=== PATIENT | male | born 1985 | race Caucasian/White ===

== ENCOUNTER 2020-12-05 14:40 | Inpatient (IN) ==
[2020-12-05 15:38] LABS: Basophils # (auto) 0.02 K/uL (0-0.2); Basophils % (auto) 0.2 %; Hematocrit (blood only) 47.4 % (42-52); Hemoglobin 17.4 g/dL (14.0-18.0); Immature Granulocytes # (auto) 0.02 K/uL (0.00-0.02); Immature Granulocytes % (auto) 0.2 %; Lymphocytes # (auto) 1.56 K/uL (1.2-3.4); Lymphocytes % (auto) 12.7 %; Mean Corpuscular Hemoglobin 32.6 pg (25-34); Mean Corpuscular Hgb Conc 36.7 g/dL (32-36); Mean Corpuscular Volume 88.9 fL (80-100); Mean Platelet Volume 11.2 fL (7.4-10.4); Monocytes # (auto) 0.49 K/uL (0.11-0.59); Neutrophils # (auto) 10.18 K/uL (1.4-6.5); Neutrophils % (auto) 82.9 %; Platelet Count 204 K/uL (130-400); RDW Standard Deviation 48.9 fL (36.4-46.3); Red Blood Count 5.33 M/uL (4.7-6.1); White Blood Count 12.27 K/uL (4.8-10.8)
[2020-12-05 15:52] LABS: Appearance Urine Clear (Clear); Bacteria Urine Automated Negative (Negative); Bilirubin Urine Negative (Negative); Blood Urine Trace (Negative); Cast Urine Automated 0 /lpf (0-5); Color Urine Yellow; Epithelial Cell Urine Auto 0-5 /lpf (0-5); Glucose Urine UA Negative (Negative); Ketones Urine 1+ (Negative); Leukocyte Esterase Urine Negative (Negative); Nitrite Urine Negative (Negative); Protein Urine Negative (Negative); RBC Urine Automated 0-4 /hpf (0-4); Urobilinogen Urine Negative (Negative); WBC Urine Automated 0 /hpf (0-5); pH Urine 5.5 (4.5-7.5)
[2020-12-05 16:05] LABS: Albumin Level 4.4 gm/dl (3.4-5.0); BUN Creatinine Ratio 8.3 (10-20); Calcium 9.1 mg/dl (8.5-10.1); Creatinine Clr Calc Pharmacy 91.7 ml/min; Est GFR (African American) 93.7; Est GFR (Non-African American) 80.9; Potassium 4.2 mmol/L (3.5-5.1)
[2020-12-05 16:08] LABS: Amphetamines+Metham, Urine Neg (Neg); Barbiturates, Urine Neg (Neg); Benzodiazepine, Urine Neg (Neg); Cocaine, Urine Neg (Neg); MDMA (Ecstacy), Urine Neg (Neg); Methadone, Urine Neg (Neg); Opiate, Urine Neg (Neg); Phencyclidine, Urine Neg (Neg)
[2020-12-05 16:15] LABS: Albumin Globulin Ratio 1.1 (0.9-2); Bilirubin,Total 0.6 mg/dl (0.2-1); Thyroid Stimulating Hormone 1.61 uIu/ml (0.300-4.500); Total Protein 8.4 gm/dl (6.4-8.2)
[2020-12-05 16:16] LABS: Acetaminophen < 2 ug/ml (10-30); Salicylate 2.8 mg/dl (2.8-20)
--- NOTE | 2020-12-05 16:26 | Emergency Department Note ---
Impression & Plan Suicidal ideation ED Provider Note NAME: CHIVO CESPEDES AGE: 35 SEX: M : 1985 ARRIVES VIA: Walk-In INFORMANT: [Patient] ED PROVIDER(S): [Sarbjit Choi MD] CHIEF COMPLAINT: Mental health evaluation HISTORY OF PRESENT ILLNESS: The patient is a 35-year-old male who has a history of depression. He has not been on medications for years. He has been using marijuana to self treat his depression. Things have worsened as of late and recently, he found out his is talking to another man. He found this out yesterday. He says that his marriage is now falling apart. Yesterday, he took a drive in his vehicle with his pistol with thoughts to commit suicide. He called a friend of his who is a police chief. His friend was able to talk him down and he has actually given the gun to the friend. The patient states that he has a kids that he needs to think about. Patient has agreed to seek help. He went to his doctor's office today and he was referred here for an evaluation. The patient is voluntary and willing to come into the hospital for psychiatric care. There has been no recent cough, cold or congestion. The patient has been otherwise healthy. He admits to the marijuana use but denies any alcohol or other drug use. REVIEW OF SYSTEMS: See HPI for pertinent positives and negatives. A total of ten systems were r eviewed and were otherwise negative. PMHx/PSHx: See Below SOCIAL HISTORY: See Below. PHYSICAL EXAM: GENERAL: Patient is in no acute distress. HEENT: No acute trauma, normocephalic atraumatic, mucous membranes moist, no nasal congestion, no scleral icterus. NECK: No stridor, no adenopathy, no meningismus, trachea is midline. LUNGS: Clear to auscultation bilaterally, no wheeze, no rhonchi, breath sounds equal. HEART: Without murmurs gallops or rubs, regular rate and rhythm. ABDOMEN: Soft, nontender, bowel sounds positive, no hernias, no peritonitis. EXTREMITIES: No cyanosis or edema, full range of motion of all the joints without pain or difficulty, no signs for acute trauma. NEUROLOGIC: Oriented x 3, no acute motor or sensory deficits, no focal weakness. SKIN: No rash, no jaundice, no diaphoresis. Psychiatric: Cooperative, tearful when discussing his suicidal thoughts and his children. Voluntary. DIFFERENTIAL DIAGNOSIS: Mood disorder, infection, hypoglycemia, electrolyte abnormalities, depression, suicidal ideation, cardiac sources, intracerebral event, toxicologic etiology, trauma, neurologic event, as well as other pathologies. EMERGENCY DEPARTMENT COURSE/PROCEDURES: MEDICAL DECISION MAKING: There is a mild leukocytosis, this could be consistent with infection or just the stress of his presentation. There is a normal hemoglobin and platelet count. There is no significant electrolyte abnormality or kidney failure. There is no worrisome liver enzyme elevation. Patient appears to be in a euthyroid state. Urinalysis does not show infection. Aspirin and Tylenol and alcohol levels were basically undetectable. Urine tox was positive for marijuana. Covid testing was negative. The patient presents with suicidal ideation. He had planned to shoot himself with his pistol. He presents voluntarily and would like to be hospitalized for his depression and thoughts. The patient was felt medically clear. He was seen by psychiatry case management. A referral was made to our hospital's psychiatric floor. The patient has been accepted at our facility. He is being transferred to [facility]. He is being admitted voluntarily. Past Med/Surg History Medical History Depression Social History Smoking Status: Current every day smoker Preferred Language: Khmer Communication Ability: Effective Senior Statistician Required: No Beliefs That Will Affect Care: None Feels Safe at Home: Yes Assistive Devices: Glasses Allergies Allergies Allergy/AdvReac Type Severity Reaction Status Date / Time No Known Allergies Allergy Verified 12/05/20 21:20 Results & Data (ED) Vital Signs Vital Signs - 24 hr 12/05/20 15:02 12/05/20 17:49 Temperature 37.4 C Temperature Source Temporal Artery Scan Pulse Rate 73 Pulse Rate [Right Radial] 51 L Pulse Rhythm [Right Radial] Regular Pulse Strength [Right Radial] Normal Respiratory Rate 20 17 Respiratory Effort / Characteristics Non-Labored Non-Labored Spontaneous Respiratory Depth Normal Normal Respiratory Pattern Regular Regular Blood Pressure 146/98 H Blood Pressure [Right Arm] 121/56 L Blood Pressure Mean 114 Blood Pressure Mean [Right Arm] 77 Blood Pressure Position Sitting Blood Pressure Position [Right Arm] Sitting Pulse Oximetry 96 99 Oxygen Delivery Method Room Air Room Air Sepsis Recent Fever Within 48 Hours No Sepsis New/Unexplained Change in Mental Status No Sepsis Action Taken by Nursing No Action Required Home Medications Current Medication List: was personally reviewed by me Laboratory Data Attestation: I reviewed the patient's lab results. Result diagrams: 12/05/20 15:12/05/20 15: Lab Results 12/05/20 12/05/20 12/05/20 Range/Units 15: 15: 15: WBC 12.27 H (4.8-10.8) K/uL RBC 5.33 (4.7-6.1) M/uL Hgb 17.4 (14.0-18.0) g/dL Hct 47.4 (42-52) % MCV 88.9 (80-100) fL MCH 32.6 (25-34) pg MCHC 36.7 H (32-36) g/dL RDW Std Deviation 48.9 H (36.4-46.3) fL RDW Coeff of Maty 15.0 H (11.5-14.5) % Plt Count 204 (130-400) K/uL MPV 11.2 H (7.4-10.4) fL Immature Gran % (Auto) 0.2 % Neut % (Auto) 82.9 % Lymph % (Auto) 12.7 % Hardee % (Auto) 4.0 % Eos % (Auto) 0.0 % Baso % (Auto) 0.2 % Neut # (Auto) 10.18 H (1.4-6.5) K/uL Lymph # (Auto) 1.56 (1.2-3.4) K/uL Hardee # (Auto) 0.49 (0.11-0.59) K/uL Eos # (Auto) 0.00 (0-0.5) K/uL Baso # (Auto) 0.02 (0-0.2) K/uL Immature Gran # (Auto) 0.02 (0.00-0.02) K/uL Sodium (136-145) mmol/L Potassium (3.5-5.1) mmol/L Chloride (98-107) mmol/L Carbon Dioxide (21-32) mmol/L Anion Gap (3-11) BUN (7-18) mg/dl Creatinine (0.6-1.4) mg/dl Est Cr Clr Drug Dosing ml/min Est GFR ( Amer) Est GFR (Non-Af Amer) BUN/Creatinine Ratio (10-20) Glucose (70-99) mg/dl Calcium (8.5-10.1) mg/dl Total Bilirubin (0.2-1) mg/dl AST (15-37) U/L ALT (12-78) U/L Alkaline Phosphatase (45-117) U/L Total Protein (6.4-8.2) gm/dl Albumin (3.4-5.0) gm/dl Globulin (2.5-4.0) gm/dl Albumin/Globulin Ratio (0.9-2) TSH (0.300-4.500) uIu/ml Urine Color Yellow Urine Appearance Clear (Clear) Urine pH 5.5 (4.5-7.5) Ur Specific Ermine 1.010 (1.000-1.030) Urine Protein Negative (Negative) Urine Glucose (UA) Negative (Negative) Urine Ketones 1+ H (Negative) Urine Blood Trace H (Negative) Urine Nitrite Negative (Negative) Urine Bilirubin Negative (Negative) Urine Urobilinogen Negative (Negative) Ur Leukocyte Esterase Negative (Negative) Urine WBC (Auto) 0 (0-5) /hpf Urine RBC (Auto) 0-4 (0-4) /hpf U Hyaline Cast (Auto) 0 (0-5) /lpf U Epithel Cells (Auto) 0-5 (0-5) /lpf Urine Bacteria (Auto) Negative (Negative) Salicylates (2.8-20) mg/dl Urine Opiates Screen Neg (Neg) Ur Methadone, Qual Neg (Neg) Acetaminophen (10-30) ug/ml Urine Barbiturates Neg (Neg) Ur Phencyclidine (PCP) Neg (Neg) U Amphetamin/Meth Scrn Neg (Neg) MDMA (Ecstasy) Screen Neg (Neg) U Benzodiazepines Scrn Neg (Neg) Ur Cocaine Metabolite Neg (Neg) U Marijuana (THC) Screen Pos H (Neg) Ethyl Alcohol mg/dL (0-3) mg/dl COVID-19 Eval Order SARS-CoV-2, RNA, NAAT (NEGATIVE) 12/05/20 12/05/20 12/05/20 Range/Units 15:21 15:21 15:21 WBC (4.8-10.8) K/uL RBC (4.7-6.1) M/uL Hgb (14.0-18.0) g/dL Hct (42-52) % MCV (80-100) fL MCH (25-34) pg MCHC (32-36) g/dL RDW Std Deviation (36.4-46.3) fL RDW Coeff of Maty (11.5-14.5) % Plt Count (130-400) K/uL MPV (7.4-10.4) fL Immature Gran % (Auto) % Neut % (Auto) % Lymph % (Auto) % Hardee % (Auto) % Eos % (Auto) % Baso % (Auto) % Neut # (Auto) (1.4-6.5) K/uL Lymph # (Auto) (1.2-3.4) K/uL Hardee # (Auto) (0.11-0.59) K/uL Eos # (Auto) (0-0.5) K/uL Baso # (Auto) (0-0.2) K/uL Immature Gran # (Auto) (0.00-0.02) K/uL Sodium 137 (136-145) mmol/L Potassium 4.2 (3.5-5.1) mmol/L Chloride 108 H (98-107) mmol/L Carbon Dioxide 22 (21-32) mmol/L Anion Gap 7.0 (3-11) BUN 10 (7-18) mg/dl Creatinine 1.17 (0.6-1.4) mg/dl Est Cr Clr Drug Dosing 91.7 ml/min Est GFR ( Amer) 93.7 Est GFR (Non-Af Amer) 80.9 BUN/Creatinine Ratio 8.3 L (10-20) Glucose 98 (70-99) mg/dl Calcium 9.1 (8.5-10.1) mg/dl Total Bilirubin 0.6 (0.2-1) mg/dl AST 11 L (15-37) U/L ALT 18 (12-78) U/L Alkaline Phosphatase 75 (45-117) U/L Total Protein 8.4 H (6.4-8.2) gm/dl Albumin 4.4 (3.4-5.0) gm/dl Globulin 4.0 (2.5-4.0) gm/dl Albumin/Globulin Ratio 1.1 (0.9-2) TSH 1.610 (0.300-4.500) uIu/ml Urine Color Urine Appearance (Clear) Urine pH (4.5-7.5) Ur Specific Ermine (1.000-1.030) Urine Protein (Negative) Urine Glucose (UA) (Negative) Urine Ketones (Negative) Urine Blood (Negative) Urine Nitrite (Negative) Urine Bilirubin (Negative) Urine Urobilinogen (Negative) Ur Leukocyte Esterase (Negative) Urine WBC (Auto) (0-5) /hpf Urine RBC (Auto) (0-4) /hpf U Hyaline Cast (Auto) (0-5) /lpf U Epithel Cells (Auto) (0-5) /lpf Urine Bacteria (Auto) (Negative) Salicylates 2.8 (2.8-20) mg/dl Urine Opiates Screen (Neg) Ur Methadone, Qual (Neg) Acetaminophen < 2 L (10-30) ug/ml Urine Barbiturates (Neg) Ur Phencyclidine (PCP) (Neg) U Amphetamin/Meth Scrn (Neg) MDMA (Ecstasy) Screen (Neg) U Benzodiazepines Scrn (Neg) Ur Cocaine Metabolite (Neg) U Marijuana (THC) Screen (Neg) Ethyl Alcohol mg/dL < 3.0 (0-3) mg/dl COVID-19 Eval Order SARS-CoV-2, RNA, NAAT (NEGATIVE) 12/05/20 12/05/20 Range/Units 16:26 16:26 WBC (4.8-10.8) K/uL RBC (4.7-6.1) M/uL Hgb (14.0-18.0) g/dL Hct (42-52) % MCV (80-100) fL MCH (25-34) pg MCHC (32-36) g/dL RDW Std Deviation (36.4-46.3) fL RDW Coeff of Maty (11.5-14.5) % Plt Count (130-400) K/uL MPV (7.4-10.4) fL Immature Gran % (Auto) % Neut % (Auto) % Lymph % (Auto) % Hardee % (Auto) % Eos % (Auto) % Baso % (Auto) % Neut # (Auto) (1.4-6.5) K/uL Lymph # (Auto) (1.2-3.4) K/uL [place]ee # (Auto) (0.11-0.59) K/uL Eos # (Auto) (0-0.5) K/uL Baso # (Auto) (0-0.2) K/uL Immature Gran # (Auto) (0.00-0.02) K/uL Sodium (136-145) mmol/L Potassium (3.5-5.1) mmol/L Chloride (98-107) mmol/L Carbon Dioxide (21-32) mmol/L Anion Gap (3-11) BUN (7-18) mg/dl Creatinine (0.6-1.4) mg/dl Est Cr Clr Drug Dosing ml/min Est GFR ( Amer) Est GFR (Non-Af Amer) BUN/Creatinine Ratio (10-20) Glucose (70-99) mg/dl Calcium (8.5-10.1) mg/dl Total Bilirubin (0.2-1) mg/dl AST (15-37) U/L ALT (12-78) U/L Alkaline Phosphatase (45-117) U/L Total Protein (6.4-8.2) gm/dl Albumin (3.4-5.0) gm/dl Globulin (2.5-4.0) gm/dl Albumin/Globulin Ratio (0.9-2) TSH (0.300-4.500) uIu/ml Urine Color Urine Appearance (Clear) Urine pH (4.5-7.5) Ur Specific Ermine (1.000-1.030) Urine Protein (Negative) Urine Glucose (UA) (Negative) Urine Ketones (Negative) Urine Blood (Negative) Urine Nitrite (Negative) Urine Bilirubin (Negative) Urine Urobilinogen (Negative) Ur Leukocyte Esterase (Negative) Urine WBC (Auto) (0-5) /hpf Urine RBC (Auto) (0-4) /hpf U Hyaline Cast (Auto) (0-5) /lpf U Epithel Cells (Auto) (0-5) /lpf Urine Bacteria (Auto) (Negative) Salicylates (2.8-20) mg/dl Urine Opiates Screen (Neg) Ur Methadone, Qual (Neg) Acetaminophen (10-30) ug/ml Urine Barbiturates (Neg) Ur Phencyclidine (PCP) (Neg) U Amphetamin/Meth Scrn (Neg) MDMA (Ecstasy) Screen (Neg) U Benzodiazepines Scrn (Neg) Ur Cocaine Metabolite (Neg) U Marijuana (THC) Screen (Neg) Ethyl Alcohol mg/dL (0-3) mg/dl COVID-19 Eval [facility] SARS-CoV-2, RNA, NAAT NEGATIVE (NEGATIVE) Discharge Plan Visit Data Chief Complaint: Mental Health Evaluation Stated Complaint: DEPRESSION ED Provider: Sarbjit Choi Discharge Problem: Suicidal ideation Patient Disposition: Admitted As Inpatient Condition: Good Discharge Instructions Interventions: ED Discharge Assessment Last Done: 12/05/20 20:45
[2020-12-05] MEDS ORDERED: hydrOXYzine HCl 25 MG TAB PO PRN ×2 (21:11)
[2020-12-05] MEDS ORDERED: MAGNESIUM HYDROXIDE SUSP 30 ML UDC PO PRN (21:11)
[2020-12-05] MEDS ORDERED: BISMUTH SUBSALICYLATE LIQD 236 ML PO PRN (21:11)
[2020-12-05] MEDS ORDERED: ACETAMINOPHEN 325 MG TAB PO PRN (21:11)
[2020-12-05] MEDS ORDERED: SODIUM CHLORIDE 0.65% NA SOLN 45 ML (OCEAN) PRN (21:11)
[2020-12-05] MEDS ORDERED: ALUMINUM/MAGNESIUM SUSP 30 ML UDC PO PRN (21:11)
[2020-12-05] MEDS ORDERED: diazePAM 5 MG TABLET PO ONE (21:14)
[2020-12-06] MEDS: NICOTINE 21 MG/24 HR TDSY TD SCH (06:19)
[2020-12-06] MEDS: NICOTINE POLACRILEX 2 MG GUM MT PRN ×2 (13:01→18:46)
--- NOTE | 2020-12-06 15:54 | History & Physical ---
Date of Service December 06, 2020 Impression / Recommendations Impression 35-year-old male who presents with suicidal ideation in the context of major depression, cannabis abuse, and interpersonal relationship issues with his . (1) Major depressive disorder with current active episode: The patient was admitted to the [facility] ([facility]) on q15 min checks (behavioral with suicide precautions) for safety. The patient will participate in group, recreational, and milieu therapies and will be offered additional individual and family sessions as clinically appropriate. 12/06/2020--Options for treatment including bupropion and venlafaxine were discussed with the patient who would like to think over his options and discuss with his mother before proceeding. (2) Suicidal ideation: Patient will attend group and individual counseling sessions. (3) Cannabis use disorder, moderate, dependence: The patient's marijuana use history suggests problematic substance use. Brief intervention was offered and accepted. Intervention was greater than 5 min in length and included assessing readiness to quit, advice on how to reduce or abstain, and to set a specific goal for this hospitalization. wicker worker will also assist in anticipating barriers to sobriety and in problem-solving for solutions to those problems while arranging for referral to appropriate treatment. The patient is in precontemplation stage with regards to transtheoretical model of change. The patient is advised to decrease consumption due to depressant effects and risk of interaction with prescription medications. The patient agreed to maintain sobriety and will be provided with recovery materials to continue to educate self on how to cope with their condition without abusing substances. Inventory Assets Strengths: insight education Needs: stable relationships responsibility to family Risk Factors Assessment Male: Yes : Yes Do You Have Access To A Gun?: Yes Health Problems: No Mental Health Diagnoses: Yes Substance Use Disorders: Yes Previous Attempt: Yes Previous Attempt; Highly Lethal: Yes Family History of Suicide: No Smoker: Yes Protective Factors Assessment Employed: Yes ([place] [id number]) Psychiatric History Identifying Data CHIVO CESPEDES is a 35-year-old M who [facility] with his and three children, has a history of depression, and was admitted on 12/05/20 20:19 on a 201 voluntary commitment for depression with suicidal ideation. Chief Complaint "I had a loaded gun to my head". History of Present Illness Patient is a 35-year-old male with a past psychiatric history significant for 1 prior episode of depression who presents to the unit with a complaint of depression and suicidal ideation. Patient states that for the past several months he has not been himself. He is found himself isolating more with low energy and anhedonia. Patient states that this caused him to use marijuana more heavily. Patient states that the increased use of marijuana along with his increasing depression caused him to have little energy to help his in the home and take care of his 3 children. Patient states that his sleep and appetite also were impacted in negative way. He reports difficulty falling asleep and staying asleep. He also reports poor appetite. Patient states that his depressed state along with his marijuana use t this weakened his relationship with his . 2 days ago patient discovered messages that indicated that his may be cheating on him which cause the patient a lot of distress. He grabbed his weapon and went into the [place] loaded his gun and held it up to his head. Patient states at that time one of his friends had messaged him on his phone and he reached out to that friend and was able to be talked down and ultimately surrendered his weapon to that friend. Patient states that this helped him realize that he needed to come in for help and thus presented to the emergency department. Aside from his marijuana use, which patient would estimate at approximately $200 worth per week, patient denies any other substance use. He is currently denying any manic symptoms or psychotic symptoms. He denies audiovisual hallucinations. He denies homicidal ideation. Past Psychiatric History Previous Psych History: Patient reports 1 prior struggle with depression approximately 7 years ago. Patient states that at that time he had tried Zoloft for approximately 6 months which increased his suicidal ideation. He was not following up with psychiatrist prior to this admission. Current Psychiatric Diagnosis: Major depressive disorder Do You Have Access To A Gun?: Yes History of Previous Suicide Attempt: Yes Describe Attempts in the Past: Patient got into vehicle with his gun yesterday, loaded a bullet Past Medication Trials: Patient reports a poor response to Zoloft medication which he reports made him more suicidal. Past Head Trauma/Neuro History History of Concussion/Seizure: No Allergies Allergy/AdvReac Type Severity Reaction Status Date / Time No Known Allergies Allergy Verified 12/05/20 21:20 Family History Family History of: None Alcohol History Hx of Alcohol Use Over the Past 12 Months: Yes (occasional) AUDIT Total Score: 3 Smoking Use Have You Smoked or Used Tobacco Products in the Last 30 Days: Yes tobacco type: cigarettes and smokeless tobacco Smoking Status: Current every day smoker Smoking packs per day: 1 Substance History Hx of Prescription Med Misuse Over the Past 12 Months: No Hx of Over the Counter Med Misuse Over the Past 12 Months: No Hx of Inhalent Misuse Over the Past 12 Months: No Hx of Organic Substance Use Over the Past 12 Months: Yes (marijuana - daily) Hx of Illegal Substances/Street Drug Use Over Past 12 Months: No Problems as a Result of Past Substance Use: Other Problems as a Result of Past Substance Use Comments: lack of motivation/responsibilities Personal History Living Arrangements: Home Highest Grade Completed: High School Graduate Beliefs That Will Affect Care: None Patient History Medical History Depression Social History Smoking Status: Current every day smoker Preferred Language: Ukrainian Communication Ability: Effective Contract Assistant Required: No Beliefs That Will Affect Care: None Feels Safe at Home: Yes Assistive Devices: Glasses Review of Systems Review of Systems: All systems reviewed & are unremarkable except as noted in HPI & below Physical Exam Mental Examination: Appearance: Well Groomed Eye Contact: Maintains Eye Contact Motor Behavior: Restless Speech: Normal, Repetitive and Perseverating Mood: Depressed and Anxious Affect: Anxious, Congruent and Sad Thought Process: Goal Oriented, Linear and Perseveration Thought Content: Intact, Linear and Perseveration Hallucinations: None Insight: Fair Judgement: Poor Vital Signs (Past 24 Hours): Last Vital Signs Temp 36.4 C L 12/06/20 06:48 Pulse 53 L 12/06/20 06:49 Resp 16 12/06/20 06:48 BP 114/71 12/06/20 06:49 Pulse Ox 96 12/05/20 21:14 Exam Statement: A physical exam was performed in the ER prior to admission to the unit by Dr. Choi. I accept that physical as correct/medical clearance for the inpatient physical exam. Results & Data ([facility]) Laboratory Results Laboratory Results - last 24 hr 12/05/20 12/05/20 12/05/20 15:05 15:05 15:05 Sodium Potassium Chloride Carbon Dioxide Anion Gap BUN Creatinine Est Cr Clr Drug Dosing Est GFR ( Amer) Est GFR (Non-Af Amer) BUN/Creatinine Ratio Glucose Calcium Total Bilirubin AST ALT Alkaline Phosphatase Total Protein Albumin Globulin Albumin/Globulin Ratio TSH Urine Color Yellow Urine Appearance Clear Urine pH 5.5 Ur Specific Mart 1.010 Urine Protein Negative Urine Glucose (UA) Negative Urine Ketones 1+ H Urine Blood Trace H Urine Nitrite Negative Urine Bilirubin Negative Urine Urobilinogen Negative Ur Leukocyte Esterase Negative Urine WBC (Auto) 0 Urine RBC (Auto) 0-4 U Hyaline Cast (Auto) 0 U Epithel Cells (Auto) 0-5 Urine Bacteria (Auto) Negative Salicylates Urine Opiates Screen Neg Ur Methadone, Qual Neg Acetaminophen Urine Barbiturates Neg Ur Phencyclidine (PCP) Neg U Amphetamin/Meth Scrn Neg MDMA (Ecstasy) Screen Neg U Benzodiazepines Scrn Neg Ur Cocaine Metabolite Neg U Marijuana (THC) Screen Pos H U Marijuana THC Carboxy Pending Ethyl Alcohol mg/dL COVID-19 Eval Order SARS-CoV-2, RNA, NAAT 12/05/20 12/05/20 12/05/20 15:21 15:21 15:21 Sodium 137 Potassium 4.2 Chloride 108 H Carbon Dioxide 22 Anion Gap 7.0 BUN 10 Creatinine 1.17 Est Cr Clr Drug Dosing 91.7 Est GFR ( Amer) 93.7 Est GFR (Non-Af Amer) 80.9 BUN/Creatinine Ratio 8.3 L Glucose 98 Calcium 9.1 Total Bilirubin 0.6 AST 11 L ALT 18 Alkaline Phosphatase 75 Total Protein 8.4 H Albumin 4.4 Globulin 4.0 Albumin/Globulin Ratio 1.1 TSH 1.610 Urine Color Urine Appearance Urine pH Ur Specific Mart Urine Protein Urine Glucose (UA) Urine Ketones Urine Blood Urine Nitrite Urine Bilirubin Urine Urobilinogen Ur Leukocyte Esterase Urine WBC (Auto) Urine RBC (Auto) U Hyaline Cast (Auto) U Epithel Cells (Auto) Urine Bacteria (Auto) Salicylates 2.8 Urine Opiates Screen Ur Methadone, Qual Acetaminophen < 2 L Urine Barbiturates Ur Phencyclidine (PCP) U Amphetamin/Meth Scrn MDMA (Ecstasy) Screen U Benzodiazepines Scrn Ur Cocaine Metabolite U Marijuana (THC) Screen U Marijuana THC Carboxy Ethyl Alcohol mg/dL < 3.0 COVID-19 Eval Order SARS-CoV-2, RNA, NAAT 12/05/20 12/05/20 16:26 16:26 Sodium Potassium Chloride Carbon Dioxide Anion Gap BUN Creatinine Est Cr Clr Drug Dosing Est GFR ( Amer) Est GFR (Non-Af Amer) BUN/Creatinine Ratio Glucose Calcium Total Bilirubin AST ALT Alkaline Phosphatase Total Protein Albumin Globulin Albumin/Globulin Ratio TSH Urine Color Urine Appearance Urine pH Ur Specific Mart Urine Protein Urine Glucose (UA) Urine Ketones Urine Blood Urine Nitrite Urine Bilirubin Urine Urobilinogen Ur Leukocyte Esterase Urine WBC (Auto) Urine RBC (Auto) U Hyaline Cast (Auto) U Epithel Cells (Auto) Urine Bacteria (Auto) Salicylates Urine Opiates Screen Ur Methadone, Qual Acetaminophen Urine Barbiturates Ur Phencyclidine (PCP) U Amphetamin/Meth Scrn MDMA (Ecstasy) Screen U Benzodiazepines Scrn Ur Cocaine Metabolite U Marijuana (THC) Screen U Marijuana THC Carboxy Ethyl Alcohol mg/dL COVID-19 Eval [facility] SARS-CoV-2, RNA, NAAT NEGATIVE Current Inpatient Medications Current Inpatient Medications: Current Inpatient Medications Acetaminophen (Acetaminophen 325 Mg Tab) 650 mg PO Q4H PRN PRN Reason: Headache or Minor Fever Stop: 01/04/21 21:10 Al Hydrox/Mg Hydrox/Simethicone (Aluminum/Magnesium Susp 30 Ml Udc) 30 ml PO Q4H PRN PRN Reason: GI Upset Stop: 01/04/21 21:10 Bismuth Subsalicylate (Bismuth Subsalicylate Liqd 236 Ml) 15 ml PO PRN PRN PRN Reason: Loose Stool Stop: 01/04/21 21:10 Hydroxyzine HCl (Hydroxyzine Hcl 25 Mg Tab) 50 mg PO HSZ PRN PRN Reason: Insomnia Stop: 01/04/21 21:10 Hydroxyzine HCl (Hydroxyzine Hcl 25 Mg Tab) 25 mg PO Q4H PRN PRN Reason: Anxiety Stop: 01/04/21 21:10 Magnesium Hydroxide (Magnesium Hydroxide Susp 30 Ml Udc) 30 ml PO DAILY PRN PRN Reason: Constipation Stop: 01/04/21 21:10 Miscellaneous (Remove Nicoderm Patch) 1 ea N/A [id number] [facility] Stop: 01/05/21 08:58 Last Admin: 12/06/20 09:17 Dose: Not Given Documented by: Nicotine (Nicotine 21 Mg/24 Hr Tdsy) 21 mg TD QAM CRESCENCIO Stop: 01/05/21 08:59 Last Admin: 12/06/20 06:19 Dose: 21 mg Documented by: Nicotine Polacrilex (Nicotine Polacrilex 2 Mg Gum) 1 piece MT PRN PRN PRN Reason: cravings Stop: 01/05/21 11:25 Last Admin: 12/06/20 13:01 Dose: 1 piece Documented by: Sodium Chloride (Sodium Chloride 0.65% Na Soln 45 Ml ([place])) 1 - 2 sprays NA PRN PRN PRN Reason: Nasal Dryness/Congestion Stop: 01/04/21 21:10
[2020-12-06] MEDS ORDERED: diazePAM 5 MG TABLET PO PRN (17:18)
[2020-12-07] MEDS: VENLAFAXINE HCL XR 37.5 MG CAPXR PO SCH (07:49)
[2020-12-07] MEDS: NICOTINE 21 MG/24 HR TDSY TD SCH (07:49)
--- NOTE | 2020-12-07 16:13 | Psychiatric Progress Note ---
Date of Service December 07, 2020 Impression / Recommendations Impression 35-year-old male who presents with suicidal ideation in the context of major depression, cannabis abuse, and interpersonal relationship issues with his . (1) Major depressive disorder with current active episode: The patient was admitted to the [facility] ([facility]) on q15 min checks (behavioral with suicide precautions) for safety. The patient will participate in group, recreational, and milieu therapies and will be offered additional individual and family sessions as clinically appropriate. 12/07/2020atient was started on 37.5 mg of venlafaxine extended release every morning 12/06/2020--Options for treatment including bupropion and venlafaxine were discussed with the patient who would like to think over his options and discuss with his mother before proceeding. (2) Suicidal ideation: Patient will attend group and individual counseling sessions. (3) Cannabis use disorder, moderate, dependence: The patient's marijuana use history suggests problematic substance use. Brief intervention was offered and accepted. Intervention was greater than 5 min in length and included assessing readiness to quit, advice on how to reduce or abstain, and to set a specific goal for this hospitalization. asbestos hazard abatement worker will also assist in anticipating barriers to sobriety and in problem-solving for solutions to those problems while arranging for referral to appropriate treatment. The patient is in precontemplation stage with regards to transtheoretical model of change. The patient is advised to decrease consumption due to depressant effects and risk of interaction with prescription medications. The patient agreed to maintain sobriety and will be provided with recovery materials to continue to educate self on how to cope with their condition without abusing substances. 12/07/2020atient reports no cravings at this time. Attributes the lack of cravings to the medications. Inventory Assets Strengths: insight education Needs: stable relationships responsibility to family Risk Factors Assessment Male: Yes : Yes Do You Have Access To A Gun?: Yes Health Problems: No Mental Health Diagnoses: Yes Substance Use Disorders: Yes Previous Attempt: Yes Previous Attempt; Highly Lethal: Yes Family History of Suicide: No Smoker: Yes Protective Factors Assessment Employed: Yes ([place] [id number]) Interval History Chief Complaint "I am already starting to feel better". Review of Systems Sleep Information Total Hours of Sleep: 6.5 Meal Information Percent Meal Consumed - Breakfast: 75 Percent Meal Consumed - Lunch: 95 Percent Meal Consumed - Dinner: 50 Subjective Subjective Patient was seen & assessed and interval progress reviewed with treatment team nursing and social work Patient reports a good night sleep as well as a strong appetite. Patient was observed interacting appropriately with peers. Patient attended multiple groups today. Regarding his mood, patient states that he feels much better. He is no longer feeling suicidal and states that his mood is starting to left. He also states that he had a good conversation with his on the phone recently which also made him feel better. Patient attributes the changes to both the episodes fear as well as the medication. No side effects observed or reported. Physical Exam Mental Examination Appearance: Well Groomed Eye Contact: Maintains Eye Contact Motor Behavior: Restless Speech: Normal, Repetitive and Perseverating Mood: Depressed and Anxious Affect: Anxious, Congruent and Sad Thought Process: Goal Oriented, Linear and Perseveration Thought Content: Intact, Linear and Perseveration Hallucinations: None Insight: Fair Judgement: Poor Vital Signs (Past 24 Hours) Last Vital Signs Temp 36.5 C 12/07/20 06:00 Pulse 73 12/07/20 06:23 Resp 16 12/07/20 06:00 BP 129/88 12/07/20 06:23 Pulse Ox 96 12/05/20 21:14 Results & Data ([facility]) Current Inpatient Medications Current Inpatient Medications: Current Inpatient Medications Acetaminophen (Acetaminophen 325 Mg Tab) 650 mg PO Q4H PRN PRN Reason: Headache or Minor Fever Stop: 01/04/21 21:10 Al Hydrox/Mg Hydrox/Simethicone (Aluminum/Magnesium Susp 30 Ml Udc) 30 ml PO Q4H PRN PRN Reason: GI Upset Stop: 01/04/21 21:10 Bismuth Subsalicylate (Bismuth Subsalicylate Liqd 236 Ml) 15 ml PO PRN PRN PRN Reason: Loose Stool Stop: 01/04/21 21:10 Diazepam (Diazepam 5 Mg Tablet) 5 mg PO BID PRN PRN Reason: Anxiety Stop: 01/05/21 17:17 Hydroxyzine HCl (Hydroxyzine Hcl 25 Mg Tab) 50 mg PO HSZ PRN PRN Reason: Insomnia Stop: 01/04/21 21:10 Hydroxyzine HCl (Hydroxyzine Hcl 25 Mg Tab) 25 mg PO Q4H PRN PRN Reason: Anxiety Stop: 01/04/21 21:10 Magnesium Hydroxide (Magnesium Hydroxide Susp 30 Ml Udc) 30 ml PO DAILY PRN PRN Reason: Constipation Stop: 01/04/21 21:10 Miscellaneous (Remove Nicoderm Patch) 1 ea N/A DAILY@0859 [facility] Stop: 01/05/21 08:58 Last Admin: 12/07/20 07:49 Dose: 1 ea Documented by: Nicotine (Nicotine 21 Mg/24 Hr Tdsy) 21 mg TD QAM [facility] Stop: 01/05/21 08:59 Last Admin: 12/07/20 07:49 Dose: 21 mg Documented by: Nicotine Polacrilex (Nicotine Polacrilex 2 Mg Gum) 1 piece MT PRN PRN PRN Reason: cravings Stop: 01/05/21 11:25 Last Admin: 12/06/20 18:46 Dose: 1 piece Documented by: Sodium Chloride (Sodium Chloride 0.65% Na Soln 45 Ml ([place])) 1 - 2 sprays NA PRN PRN PRN Reason: Nasal Dryness/Congestion Stop: 01/04/21 21:10 Venlafaxine HCl (Venlafaxine Hcl Xr 37.5 Mg Capxr) 37.5 mg PO QAM [facility] Stop: 01/06/21 08:59 Last Admin: 12/07/20 07:49 Dose: 37.5 mg Documented by: Mental Health & Subst Abuse Tx Psychiatrist Name of Psychiatrist: [facility] Psychiatrist's Date of Appointment with Psychiatrist: 12/12/20 Time of Appointment with Psychiatrist: 10am Psychiatric Appointment Comment: [address] [id number] Therapist Name of Therapist: [facility]- Gabe Perez LCSW Therapist's Date of Therapist Appointment: 12/20/20 Time of Therapist Appointment: 8am Therapy Appointment Comment: [address] [place] [id number] Post Discharge Appointments Primary Care Physician Name Of Family Doctor: Jayshree Watts Primary Care Provider Appointment Comment: [place] office Contact Information Discharge Discharge Address: [address] [place] [address] [place] [address]
[2020-12-07] MEDS: NICOTINE POLACRILEX 2 MG GUM MT PRN (18:44)
[2020-12-08] MEDS: NICOTINE 21 MG/24 HR TDSY TD SCH (06:23)
[2020-12-08] MEDS: VENLAFAXINE HCL XR 37.5 MG CAPXR PO SCH (09:55)
--- NOTE | 2020-12-08 11:24 | Psychiatric Progress Note ---
Date of Service December 08, 2020 Impression / Recommendations Impression 35-year-old male who presents with suicidal ideation in the context of major depression, cannabis abuse, and interpersonal relationship issues with his . (1) Major depressive disorder with current active episode: The patient was admitted to the [facility] ([facility]) on q15 min checks (behavioral with suicide precautions) for safety. The patient will participate in group, recreational, and milieu therapies and will be offered additional individual and family sessions as clinically appropriate. 12/08/2020atient continues on 37.5 mg of venlafaxine extended release every morning. will continue to monitor response. dose is intentionally held low, due to history of side effects at higher dosages of SSRIs. Patient is reporting some SI today. 12/07/2020atient was started on 37.5 mg of venlafaxine extended release every morning 12/06/2020--Options for treatment including bupropion and venlafaxine were discussed with the patient who would like to think over his options and discuss with his mother before proceeding. (2) Suicidal ideation: Patient will attend group and individual counseling sessions. (3) Cannabis use disorder, moderate, dependence: The patient's marijuana use history suggests problematic substance use. Brief intervention was offered and accepted. Intervention was greater than 5 min in length and included assessing readiness to quit, advice on how to reduce or abstain, and to set a specific goal for this hospitalization. suction worker will also assist in anticipating barriers to sobriety and in problem-solving for solutions to those problems while arranging for referral to appropriate treatment. The patient is in precontemplation stage with regards to transtheoretical model of change. The patient is advised to decrease consumption due to depressant effects and risk of interaction with prescription medications. The patient agreed to maintain sobriety and will be provided with recovery materials to continue to educate self on how to cope with their condition without abusing substances. 12/08/2020atient reports no cravings at this time. Attributes the lack of cravings to the medications. Inventory Assets Strengths: insight education Needs: stable relationships responsibility to family Risk Factors Assessment Male: Yes : Yes Do You Have Access To A Gun?: Yes Health Problems: No Mental Health Diagnoses: Yes Substance Use Disorders: Yes Previous Attempt: Yes Previous Attempt; Highly Lethal: Yes Family History of Suicide: No Smoker: Yes Protective Factors Assessment Employed: Yes ([place] [address]) Interval History Chief Complaint "I just don't know if I'm better yet. I've been having some bad thoughts". Review of Systems Sleep Information Total Hours of Sleep: 6 Meal Information Percent Meal Consumed - Breakfast: 75 Percent Meal Consumed - Lunch: 95 Percent Meal Consumed - Dinner: 100 Subjective Subjective Patient was seen & assessed and interval progress reviewed with treatment team Despite good progress yesterday, patient was found tearful, distraught and upset regarding his mood. He states that he is having intrusive thoughts return regarding his failures, worthlessness. Patient unable to contract for safety at this time. Suicidal thoughts still a concern presently. Patient endorsed poor sleep but was compliant on medications. Physical Exam Vital Signs (Past 24 Hours) Last Vital Signs Temp 36.7 C 12/08/20 06:47 Pulse 76 12/08/20 06:47 Resp 16 12/08/20 06:47 BP 115/72 12/08/20 06:47 Pulse Ox 96 12/05/20 21:14 Results & Data ([facility]) Laboratory Results Laboratory Results - last 24 hr 12/05/20 15:05 U Marijuana THC Carboxy 1360 H Current Inpatient Medications Current Inpatient Medications: Current Inpatient Medications Acetaminophen (Acetaminophen 325 Mg Tab) 650 mg PO Q4H PRN PRN Reason: Headache or Minor Fever Stop: 01/04/21 21:10 Al Hydrox/Mg Hydrox/Simethicone (Aluminum/Magnesium Susp 30 Ml Udc) 30 ml PO Q4H PRN PRN Reason: GI Upset Stop: 01/04/21 21:10 Bismuth Subsalicylate (Bismuth Subsalicylate Liqd 236 Ml) 15 ml PO PRN PRN PRN Reason: Loose Stool Stop: 01/04/21 21:10 Diazepam (Diazepam 5 Mg Tablet) 5 mg PO BID PRN PRN Reason: Anxiety Stop: 01/05/21 17:17 Hydroxyzine HCl (Hydroxyzine Hcl 25 Mg Tab) 50 mg PO HSZ PRN PRN Reason: Insomnia Stop: 01/04/21 21:10 Hydroxyzine HCl (Hydroxyzine Hcl 25 Mg Tab) 25 mg PO Q4H PRN PRN Reason: Anxiety Stop: 01/04/21 21:10 Magnesium Hydroxide (Magnesium Hydroxide Susp 30 Ml Udc) 30 ml PO DAILY PRN PRN Reason: Constipation Stop: 01/04/21 21:10 Miscellaneous (Remove Nicoderm Patch) 1 ea N/A DAILY@0859 [facility] Stop: 01/05/21 08:58 Last Admin: 12/08/20 06:26 Dose: 1 ea Documented by: Nicotine (Nicotine 21 Mg/24 Hr Tdsy) 21 mg TD QAM [facility] Stop: 01/05/21 08:59 Last Admin: 12/08/20 06:23 Dose: 21 mg Documented by: Nicotine Polacrilex (Nicotine Polacrilex 2 Mg Gum) 1 piece MT PRN PRN PRN Reason: cravings Stop: 01/05/21 11:25 Last Admin: 12/07/20 18:44 Dose: 1 piece Documented by: Sodium Chloride (Sodium Chloride 0.65% Na Soln 45 Ml ([place])) 1 - 2 sprays NA PRN PRN PRN Reason: Nasal Dryness/Congestion Stop: 01/04/21 21:10 Venlafaxine HCl (Venlafaxine Hcl Xr 37.5 Mg Capxr) 37.5 mg PO QAM [facility] Stop: 01/06/21 08:59 Last Admin: 12/08/20 09:55 Dose: 37.5 mg Documented by: Mental Health & Subst Abuse Tx Psychiatrist Name of Psychiatrist: [facility]- [facility] Psychiatrist's Date of Appointment with Psychiatrist: 12/12/20 Time of Appointment with Psychiatrist: 10am Psychiatric Appointment Comment: [address] [place] [id number] Therapist Name of Therapist: [facility]- Gabe Perez LCSW Therapist's Date of Therapist Appointment: 12/20/20 Time of Therapist Appointment: 8am Therapy Appointment Comment: [address] [place] [id number] Post Discharge Appointments Primary Care Physician Name Of Family Doctor: Jayshree Watts Primary Care Provider Appointment Comment: [place] office Contact Information Discharge Discharge Address: [address] [place] [address] [place] [address]
[2020-12-08] MEDS: NICOTINE POLACRILEX 2 MG GUM MT PRN (12:54)
[2020-12-09] MEDS: VENLAFAXINE HCL XR 37.5 MG CAPXR PO SCH (08:10)
[2020-12-09] MEDS: NICOTINE 21 MG/24 HR TDSY TD SCH (08:12)
--- NOTE | 2020-12-09 13:46 | Discharge Summary ---
Date of Service December 09, 2020 History of Present Illness Patient is a 35-year-old male with a past psychiatric history significant for 1 prior episode of depression who presents to the unit with a complaint of depression and suicidal ideation. Patient states that for the past several months he has not been himself. He is found himself isolating more with low energy and anhedonia. Patient states that this caused him to use marijuana more heavily. Patient states that the increased use of marijuana along with his increasing depression caused him to have little energy to help his in the home and take care of his 3 children. Patient states that his sleep and appetite also were impacted in negative way. He reports difficulty falling asleep and staying asleep. He also reports poor appetite. Patient states that his depressed state along with his marijuana use t this weakened his relationship with his . 2 days ago patient discovered messages that indicated that his may be cheating on him which cause the patient a lot of distress. He grabbed his weapon and went into the [place] loaded his gun and held it up to his head. Patient states at that time one of his friends had messaged him on his phone and he reached out to that friend and was able to be talked down and ultimately surrendered his weapon to that friend. Patient states that this helped him realize that he needed to come in for help and thus presented to the emergency department. Aside from his marijuana use, which patient would estimate at approximately $200 worth per week, patient denies any other substance use. He is currently denying any manic symptoms or psychotic symptoms. He denies audiovisual hallucinations. He denies homicidal ideation. Physical Exam Mental Examination Appearance: Well Groomed Eye Contact: Maintains Eye Contact Motor Behavior: Restless Speech: Normal Mood: Euthymic Affect: Anxious, Congruent and Sad Thought Process: Goal Oriented, Linear and Perseveration Thought Content: Intact, Linear and Perseveration Hallucinations: None Insight: Fair Judgement: Poor Psychiatric Orientation: alert and oriented x 3 Apperance: appropriately dressed Eye Contact: good eye contact Motor Behavior: no abnormal motor movements Speech: normal rate/rhythm/volume of speech Affect: euthymic affect Mood: no depressed mood Thought Process: goal directed thought process Thought Content: reality based without delusions Suicidal Thoughts: denies suicidal thoughts and denies suicidal plan Homicidal Thoughts: denies homicidal thoughts and denies homicidal plan Hallucinations: no auditory hallucinations Cognition: recent memory grossly intact Estimated Intelligence: average estimated intelligence Insight: good insight Judgement: + fair judgement Vital Signs (Past 24 Hours) Last Vital Signs Temp 36.6 C 12/09/20 11:47 Pulse 58 L 12/09/20 11:47 Resp 16 12/09/20 11:47 BP 129/88 12/09/20 11:47 Pulse Ox 96 12/09/20 11:47 Principal Diagnosis major depressive disorder Psychiatric Data See daily stay summary. In short, safety was maintained, and the patient was cooperative with care. Medication changes included starting venlafaxine at low dose of 37.5mg and they tolerated this well. A family session was held and safety plan was completed prior to discharge. Day of Discharge Assessment Today the patient voices readiness for discharge. They note improvement in mood and deny thoughts to harm self or others. Thoughts remain organized and they are improved from admission. There is no evidence of psychosis. They agree to take medications as prescribed and keep follow-up appointments. They are stable for discharge to outpatient level of care. Transition of Care Transition Of Care Record: was reviewed with the patient Advance Directives Advance Directives Information Provided: Yes Advance Directives: No Mental Health Advance Directive: No Advance Directives on File: No Living Will: No Power of Mold Yard Worker: No Advance Directives Reason:: Declines as Mental Health Visit. Risk Factors Assessment Male: Yes : Yes Do You Have Access To A Gun?: Yes Health Problems: No Mental Health Diagnoses: Yes Substance Use Disorders: Yes Previous Attempt: Yes Previous Attempt; Highly Lethal: Yes Family History of Suicide: No Smoker: Yes Protective Factors Assessment : Yes Responsible for Young Children: Yes Employed: Yes ([place] [id number]) Supportive Family: Yes Good Rapport with Provider: Yes Tobacco Cessation at Discharge Tobacco Cessation Medication Prescribed at Discharge: Offered & Pt Refused Total Time Total Time Spent: Greater Than 30 Minutes Total Time Includes: Examination of the patient, Discharge Planning and Medication Reconciliation Discharge Data Lab Results 12/05/20 12/05/20 12/05/20 15:05 15:05 15:05 WBC RBC Hgb Hct MCV MCH MCHC RDW Std Deviation RDW Coeff of Maty Plt Count MPV Immature Gran % (Auto) Neut % (Auto) Lymph % (Auto) [place] % (Auto) Eos % (Auto) Baso % (Auto) Neut # (Auto) Lymph # (Auto) [place] # (Auto) Eos # (Auto) Baso # (Auto) Immature Gran # (Auto) Sodium Potassium Chloride Carbon Dioxide Anion Gap BUN Creatinine Est Cr Clr Drug Dosing Est GFR ( Amer) Est GFR (Non-Af Amer) BUN/Creatinine Ratio Glucose Calcium Total Bilirubin AST ALT Alkaline Phosphatase Total Protein Albumin Globulin Albumin/Globulin Ratio TSH Urine Color Yellow Urine Appearance Clear Urine pH 5.5 Ur Specific [place] 1.010 Urine Protein Negative Urine Glucose (UA) Negative Urine Ketones 1+ H Urine Blood Trace H Urine Nitrite Negative Urine Bilirubin Negative Urine Urobilinogen Negative Ur Leukocyte Esterase Negative Urine WBC (Auto) 0 Urine RBC (Auto) 0-4 U Hyaline Cast (Auto) 0 U Epithel Cells (Auto) 0-5 Urine Bacteria (Auto) Negative Salicylates Urine Opiates Screen Neg Ur Methadone, Qual Neg Acetaminophen Urine Barbiturates Neg Ur Phencyclidine (PCP) Neg U Amphetamin/Meth Scrn Neg MDMA (Ecstasy) Screen Neg U Benzodiazepines Scrn Neg Ur Cocaine Metabolite Neg U Marijuana (THC) Screen Pos H U Marijuana THC Carboxy 1360 H Ethyl Alcohol mg/dL COVID-19 Eval Order SARS-CoV-2, RNA, NAAT 12/05/20 12/05/20 12/05/20 15:21 15:21 15:21 WBC 12.27 H RBC 5.33 Hgb 17.4 Hct 47.4 MCV 88.9 MCH 32.6 MCHC 36.7 H RDW Std Deviation 48.9 H RDW Coeff of Maty 15.0 H Plt Count 204 MPV 11.2 H Immature Gran % (Auto) 0.2 Neut % (Auto) 82.9 Lymph % (Auto) 12.7 [place] % (Auto) 4.0 Eos % (Auto) 0.0 Baso % (Auto) 0.2 Neut # (Auto) 10.18 H Lymph # (Auto) 1.56 [place] # (Auto) 0.49 Eos # (Auto) 0.00 Baso # (Auto) 0.02 Immature Gran # (Auto) 0.02 Sodium 137 Potassium 4.2 Chloride 108 H Carbon Dioxide 22 Anion Gap 7.0 BUN 10 Creatinine 1.17 Est Cr Clr Drug Dosing 91.7 Est GFR ( Amer) 93.7 Est GFR (Non-Af Amer) 80.9 BUN/Creatinine Ratio 8.3 L Glucose 98 Calcium 9.1 Total Bilirubin 0.6 AST 11 L ALT 18 Alkaline Phosphatase 75 Total Protein 8.4 H Albumin 4.4 Globulin 4.0 Albumin/Globulin Ratio 1.1 TSH 1.610 Urine Color Urine Appearance Urine pH Ur Specific [place] Urine Protein Urine Glucose (UA) Urine Ketones Urine Blood Urine Nitrite Urine Bilirubin Urine Urobilinogen Ur Leukocyte Esterase Urine WBC (Auto) Urine RBC (Auto) U Hyaline Cast (Auto) U Epithel Cells (Auto) Urine Bacteria (Auto) Salicylates 2.8 Urine Opiates Screen Ur Methadone, Qual Acetaminophen < 2 L Urine Barbiturates Ur Phencyclidine (PCP) U Amphetamin/Meth Scrn MDMA (Ecstasy) Screen U Benzodiazepines Scrn Ur Cocaine Metabolite U Marijuana (THC) Screen U Marijuana THC Carboxy Ethyl Alcohol mg/dL COVID-19 Eval Order SARS-CoV-2, RNA, NAAT 12/05/20 12/05/20 12/05/20 15:21 16:26 16:26 WBC RBC Hgb Hct MCV MCH MCHC RDW Std Deviation RDW Coeff of Maty Plt Count MPV Immature Gran % (Auto) Neut % (Auto) Lymph % (Auto) [place] % (Auto) Eos % (Auto) Baso % (Auto) Neut # (Auto) Lymph # (Auto) [place] # (Auto) Eos # (Auto) Baso # (Auto) Immature Gran # (Auto) Sodium Potassium Chloride Carbon Dioxide Anion Gap BUN Creatinine Est Cr Clr Drug Dosing Est GFR ( Amer) Est GFR (Non-Af Amer) BUN/Creatinine Ratio Glucose Calcium Total Bilirubin AST ALT Alkaline Phosphatase Total Protein Albumin Globulin Albumin/Globulin Ratio TSH Urine Color Urine Appearance Urine pH Ur Specific [place] Urine Protein Urine Glucose (UA) Urine Ketones Urine Blood Urine Nitrite Urine Bilirubin Urine Urobilinogen Ur Leukocyte Esterase Urine WBC (Auto) Urine RBC (Auto) U Hyaline Cast (Auto) U Epithel Cells (Auto) Urine Bacteria (Auto) Salicylates Urine Opiates Screen Ur Methadone, Qual Acetaminophen Urine Barbiturates Ur Phencyclidine (PCP) U Amphetamin/Meth Scrn MDMA (Ecstasy) Screen U Benzodiazepines Scrn Ur Cocaine Metabolite U Marijuana (THC) Screen U Marijuana THC Carboxy Ethyl Alcohol mg/dL < 3.0 COVID-19 Eval [facility] SARS-CoV-2, RNA, NAAT NEGATIVE Hospital Course (1) Major depressive disorder with current active episode: The patient was admitted to the [facility] ([facility] unit) on q15 min checks (behavioral with suicide precautions) for safety. The patient will participate in group, recreational, and milieu therapies and will be offered additional individual and family sessions as clinically appropriate. 12/08/2020atient continues on 37.5 mg of venlafaxine extended release every morning. will continue to monitor response. dose is intentionally held low, due to history of side effects at higher dosages of SSRIs. Patient is reporting some SI today. 12/07/2020atient was started on 37.5 mg of venlafaxine extended release every morning 12/06/2020--Options for treatment including bupropion and venlafaxine were discussed with the patient who would like to think over his options and discuss with his mother before proceeding. (2) Suicidal ideation: Patient will attend group and individual counseling sessions. (3) Cannabis use disorder, moderate, dependence: The patient's marijuana use history suggests problematic substance use. Brief intervention was offered and accepted. Intervention was greater than 5 min in length and included assessing readiness to quit, advice on how to reduce or abstain, and to set a specific goal for this hospitalization. horticulture worker will also assist in anticipating barriers to sobriety and in problem-solving for solutions to those problems while arranging for referral to appropriate treatment. The patient is in precontemplation stage with regards to transtheoretical model of change. The patient is advised to decrease consumption due to depressant effects and risk of interaction with prescription medications. The patient agreed to maintain sobriety and will be provided with recovery materials to continue to educate self on how to cope with their condition without abusing substances. 12/08/2020atient reports no cravings at this time. Attributes the lack of cravings to the medications. Mental Health & Subst Abuse Tx Psychiatrist Name of Psychiatrist: [facility] Psychiatrist's Date of Appointment with Psychiatrist: 12/12/20 Time of Appointment with Psychiatrist: 10am Psychiatric Appointment Comment: [address] [place] [address] Psychiatrist Release of Information: Obtained, Reviewed and Signed Therapist Name of Therapist: [facility]- [facility] Therapist's Date of Therapist Appointment: 12/20/20 Time of Therapist Appointment: 8am Therapy Appointment Comment: [address] [place] [address] Therapist Release of Information: Obtained, Reviewed and Signed Post Discharge Appointments Primary Care Physician Name Of Family Doctor: Jayshree Watts Primary Care Provider Appointment Comment: Follow up as needed Primary Care Release of Information: Obtained, Reviewed and Signed Smoking Cessation Counseling Tobacco Cessation Medication Prescribed at Discharge: Offered & Pt Refused Contact Information Discharge Discharge Address: [address] [place] [address] [place] [address] Discharge Plan Discharge Items Patient Disposition: Home - Self-Care Reason For Visit: MDD Discharge Diagnosis: Major depressive disorder Condition on Discharge: Good Goals: maintain sobriety Activity: Resume your previous activity Non-emergency contact: Primary Care Provider, Psychiatrist and Therapist Call non-emergency contact if: you have any medication questions and your symptoms worsen Follow-up/Referrals: PCP,NO [Primary Care Provider] - Diet: Regular Addtl Attending Provider Instructions: SPECIAL CARE INSTRUCTIONS: 1. Follow through with your scheduled aftercare appointments. If unable to keep an appointment, please call to reschedule. 2. Take your medication only as prescribed. Medication should not be changed or stopped without the approval of your doctor. In the event of worsening symptoms or concerns about side effects, contact your doctor immediately. 3. Utilize new healthy coping skills, anger management skills, and stress management skills learned during your hospitalization. Journal feelings and process them with a support person. Identify stressors or situations that may result in relapse, deterioration or inappropriate behaviors and develop a plan to deal with those issues. 4. If your coping skills are ineffective and you are in crisis, contact your outpatient providers for direction. If unable to reach your providers, please call the [facility] CRISIS LINE AT , go to the [facility] walk-in center at [address], [address], [place], or go to the closest Emergency Room. 5. Avoid alcohol and un-prescribed drugs. 6. You have been provided with the Mental Health Advance Directives Pamphlet for your review. AFTERCARE APPOINTMENTS: * Please call your insurance company prior to your scheduled appointment to confirm your aftercare providers are covered. Take your insurance information to your appointments. WHO TO CALL AND WHEN: Medical Emergencies: For questions or emergencies related to your hospital stay, please contact the Inpatient Behavioral Health Unit at [phone]. A instrumentation technician is on-call 23/02 for the Behavioral Health Unit for emergencies At any time you feel your situation is an emergency, you may also call 911 immediately. Pending Studies at Discharge: No Stand-Alone Forms: My [facility], Smoking Cessation Medications and DC Order Prescriptions: New venlafaxine 37.5 mg Capsule,Extended Release 24hr 37.5 mg PO QAM 30 Days Qty: 30 RF: 0 Discharge Orders: Discharge Order (Routine); Ordered 12/09/20 Ordered By: Dariel Dewey Admission Data Admit Date/Time: 12/05/20 20:19 Attending Provider: Dariel Dewey Admit Provider: Dariel Dewey Primary Care Provider: PCP,NO Other Interventions: Discharge Summary Assessment (RN) Last Done: 12/09/20 11:47 PSY Interdisciplinary Discharge Planning Last Done: 12/09/20 11:36 Coding Level of Care Code 12503 D/C day mgmt > 30 min Diagnoses Major depressive disorder with current active episode F32.9 Suicidal ideation R45.851 Cannabis use disorder, moderate, dependence F12.20
== END 2020-12-09 13:10 | disposition home or self-care (01) | DRG 881 ==
LOC: ED 14:40 → 3S 20:19 → ED 20:45 → 3S 20:45

== ENCOUNTER 2024-07-10 13:45 | Inpatient (IN) ==
[2024-07-10 14:27] LABS: Basophils # (auto) 0.04 K/uL (0.00-0.20); Basophils % (auto) 0.4 %; Eosinophils # (auto) 0.02 K/uL (0.00-0.50); Eosinophils % (auto) 0.2 %; Hematocrit (blood only) 45.4 % (42.0-52.0); Hemoglobin 15.5 g/dl (14.0-18.0); Immature Granulocytes # (auto) 0.03 K/uL (0.01-0.20); Immature Granulocytes % (auto) 0.3 %; Lymphocytes # (auto) 1.84 K/uL (1.20-3.40); Lymphocytes % (auto) 19.9 %; Mean Corpuscular Hemoglobin 31.2 pg (25.0-34.0); Mean Corpuscular Hgb Conc 34.1 g/dL (32.0-36.0); Mean Corpuscular Volume 91.3 fL (80.0-100.0); Mean Platelet Volume 10.7 fL (9.4-12.4); Monocytes # (auto) 0.56 K/uL (0.11-0.59); Neutrophils # (auto) 6.77 K/uL (1.40-6.50); Neutrophils % (auto) 73.2 %; Platelet Count 200 K/uL (130-400); RDW Coefficient of Variation 14.5 % (11.5-14.5); RDW Standard Deviation 48.5 fL (36.4-46.3); Red Blood Count 4.97 M/uL (4.70-6.10); White Blood Count 9.26 K/ul (4.8-10.8)
[2024-07-10 14:42] LABS: Acetaminophen < 3 ug/ml (10-30); Salicylate < 3.0 mg/dl (3.0-30)
[2024-07-10 14:44] LABS: Alanine Aminotransferase 14 U/L (7-52); Albumin Globulin Ratio 1.5 (0.9-2); Albumin Level 4.3 gm/dl (3.4-5.0); Alkaline Phosphatase 61 U/L (34-104); Anion Gap 7 (3-11); Aspartate Aminotransferase 20 U/L (13-39); BUN Creatinine Ratio 10.3 (10-20); Bilirubin,Total 0.3 mg/dl (0.2-1.0); Blood Urea Nitrogen 11 mg/dl (6-23); Calcium 9.3 mg/dl (8.6-10.3); Carbon Dioxide 28 mmol/L (21-32); Chloride 106 mmol/L (98-107); Globulin 2.9 gm/dl (2.5-4.0); Glucose 105 mg/dl (70-99(Fasting)); Potassium 3.9 mmol/L (3.5-5.1); Sodium 141 mmol/L (136-145); Total Protein 7.2 gm/dl (6.0-8.3)
[2024-07-10 14:57] LABS: Thyroid Stimulating Hormone 1.677 uIu/ml (0.300-4.500)
[2024-07-10 15:02] LABS: Appearance Urine Clear (Clear); Bacteria Urine Automated None Seen (None Seen); Bilirubin Urine Negative (Negative); Blood Urine Negative (Negative); Color Urine Yellow; Epithelial Cell Urine Auto 0-2 /hpf (0-2); Glucose Urine UA Negative (Negative); Ketones Urine Negative (Negative); Leukocyte Esterase Urine Negative (Negative); Nitrite Urine Negative (Negative); Protein Urine Trace (Negative); RBC Urine Automated 0-2 /hpf (0-2); Specific Gravity Urine 1.018 (1.000-1.030); Urobilinogen Urine Negative (Negative); WBC Urine Automated 0-5 /hpf (0-5)
--- NOTE | 2024-07-10 15:32 | Emergency Department Note ---
Impression & Plan Depression ED Provider Note ED Provider Note NAME: CHIVO CESPEDES AGE:38 SEX: Male : 1985 ARRIVES VIA: Police INFORMANT: Patient ED PROVIDER(s): Rosemarie Colby DO CHIEF COMPLAINT: Mental health evaluation HPI: This is a 38-year-old male who presents emergency department for mental health evaluation. Patient brought in by police after his contacted them stating he had made suicidal threats after they had a verbal altercation. Patient states he "said some stupid things" when he was upset with his when they were arguing. He states he has said stupid things in the past. Patient does use Wellbutrin and sees an outpatient mental health provider. He denies suicidal ideation and homicidal ideation. Patient states he and his has been fighting over the last several months. wrote a 302 and delegate made a warrant. Patient does have a concealed carry permit and keeps a gun in his truck. He did retrieve this man out of the truck and took it to the basement with him. Police have since secured this. PAST MEDICAL HISTORY:See Below PAST SURGICAL HISTORY:See Below FAMILY HISTORY:See Below SOCIAL HISTORY:See Below HOME MEDICATIONS:See Below ALLERGIES:See Below VITALS:See Below PHYSICAL EXAMINATION: GENERAL: alert, well appearing, well nourished, no distress, non-toxic EYE EXAM: normal conjunctiva, PERRL and EOM's grossly intact OROPHARYNX: no exudate, no erythema, lips, buccal mucosa, and tongue normal and mucous membranes are moist NECK: supple, no nuchal rigidity, no adenopathy, non-tender LUNGS: Clear to auscultation. Normal chest wall mechanics, no w/r/r HEART: no murmurs, S1 normal and S2 normal ABDOMEN: abdomen soft, non-tender, normo-active bowel sounds, no masses, no rebound or guarding. SKIN: no rashes, petechiae, orbruising UPPER EXTREMITIES: upper extremities are grossly normal. FROM, nml pulses b/l. LOWER EXTREMITIES: No pitting edema. FROM, nml pulses b/l. NEURO EXAM: Normal sensorium, cranial nerves II-XII grossly intact, normal speech, no facial droop,nogross weakness of arms, no gross weakness of legs. Gross sensation intact. No ataxia. Vital Signs: reviewed and remarkable Differential Diagnosis: mood disorder, suicidal ideation, anxiety, depression, substance abuse, toxidrome, infection, hypoglycemia, electrolyte abnormalities, ICH as well as others were considered. MEDICAL DECISION MAKING: This is a 38-year-old male brought in by police for mental health evaluation. 302 initially petition by and made a warrant by delegate involved in the case. Labs and urine collected and sent per protocol are reassuring. Patient no other concerns regarding his overall health. He was seen and evaluated by case management. Due to concerning episode tonight including statements of suicide, worsening depression, and access to a weapon which police have now secured as well as prior history, I do feel patient would benefit from inpatient mental health treatment. Patient willing to sign in voluntarily. 201 signed by me and patient admitted to 3 S. 302 denied by me. Consultation(s): 1735: Patient seen and evaluated by case management. Inpatient mental health treatment was recommended. Patient in agreement and will sign in voluntarily. 201 signed by me for 3 S. ER Treatment Provided: See below Diagnostics Interpreted By Me: -Laboratory studies: As stated above and show below. Triage Nursing Note Reviewed Prior/Outside Records Reviewed Past Med/Surg History Problem List (Updated 07/10/24 @ 15:32 by Rosemarie Colby DO) Depression (Acute) Cannabis use disorder, moderate, dependence Major depressive disorder with current active episode (Acute) Medical History Depression Social History Smoking Status: Never smoker Tobacco Type: Cigarettes and Smokeless Tobacco (Dip or Chew) Preferred Language: Telugu Communication Ability: Effective Communication Ability Comment: N/A Slubber Frame Changer Required: No Beliefs That Will Affect Care: None Feels Safe at Home: Yes Gender Identity: Male Assistive Devices: Glasses Allergies Allergies Allergy/AdvReac Type Severity Reaction Status Date / Time No Known Allergies Allergy Verified 01/19/21 13:09 Home Meds Home Medications Medication Instructions Recorded Confirmed bupropion HCl 100 mg tablet 100 mg PO BID 07/10/24 07/10/24 Results & Data (ED) Vital Signs Vital Signs - 24 hr 07/10/24 13:53 07/10/24 18:13 Temperature 36.7 C Temperature Source Oral Pulse Rate 86 Pulse Rate [Finger] 73 Pulse Rhythm Regular Pulse Strength Normal Respiratory Rate 20 18 Respiratory Effort / Characteristics Non-Labored Spontaneous Respiratory Depth Normal Respiratory Pattern Regular Blood Pressure 116/85 Blood Pressure [Left Arm] 119/81 Blood Pressure Mean 95 Blood Pressure Mean [Left Arm] 93 Blood Pressure Position Sitting Pulse Oximetry 97 98 Oxygen Delivery Method Room Air Room Air Sepsis Recent Fever Within 48 Hours No Sepsis New/Unexplained Change in Mental Status No Sepsis Action Taken by Nursing No Action Required Laboratory Data 07/10/24 14:05 07/10/24 14:05 Lab Results 07/10/24 07/10/24 07/10/24 Range/Units 14:05 14:40 14:45 WBC 9.26 (4.8-10.8) K/ul RBC 4.97 (4.70-6.10) M/uL Hgb 15.5 (14.0-18.0) g/dl Hct 45.4 (42.0-52.0) % MCV 91.3 (80.0-100.0) fL MCH 31.2 (25.0-34.0) pg MCHC 34.1 (32.0-36.0) g/dL RDW Std Deviation 48.5 H (36.4-46.3) fL RDW Coeff of Maty 14.5 (11.5-14.5) % Plt Count 200 (130-400) K/uL MPV 10.7 (9.4-12.4) fL Immature Gran % (Auto) 0.3 % Neut % (Auto) 73.2 % Lymph % (Auto) 19.9 % [place] % (Auto) 6.0 % Eos % (Auto) 0.2 % Baso % (Auto) 0.4 % Neut # (Auto) 6.77 H (1.40-6.50) K/uL Lymph # (Auto) 1.84 (1.20-3.40) K/uL [place] # (Auto) 0.56 (0.11-0.59) K/uL Eos # (Auto) 0.02 (0.00-0.50) K/uL Baso # (Auto) 0.04 (0.00-0.20) K/uL Immature Gran # (Auto) 0.03 (0.01-0.20) K/uL Sodium 141 (136-145) mmol/L Potassium 3.9 (3.5-5.1) mmol/L Chloride 106 (98-107) mmol/L Carbon Dioxide 28 (21-32) mmol/L Anion Gap 7 (3-11) BUN 11 (6-23) mg/dl Creatinine 1.07 (0.6-1.4) mg/dl Est Cr Clr Drug Dosing Not Reportable eGFR 91.66 BUN/Creatinine Ratio 10.3 (10-20) Glucose 105 H (70-99(Fasting)) mg/dl Calcium 9.3 (8.6-10.3) mg/dl Total Bilirubin 0.3 (0.2-1.0) mg/dl AST 20 (13-39) U/L ALT 14 (7-52) U/L Alkaline Phosphatase 61 (34-104) U/L Total Protein 7.2 (6.0-8.3) gm/dl Albumin 4.3 (3.4-5.0) gm/dl Globulin 2.9 (2.5-4.0) gm/dl Albumin/Globulin Ratio 1.5 (0.9-2) TSH 1.677 (0.300-4.500) uIu/ml Urine Color Yellow Urine Appearance Clear (Clear) Urine pH 7.0 (4.5-7.5) Ur Specific [place] 1.018 (1.000-1.030) Urine Protein Trace H (Negative) Urine Glucose (UA) Negative (Negative) Urine Ketones Negative (Negative) Urine Blood Negative (Negative) Urine Nitrite Negative (Negative) Urine Bilirubin Negative (Negative) Urine Urobilinogen Negative (Negative) Ur Leukocyte Esterase Negative (Negative) Urine WBC (Auto) 0-5 (0-5) /hpf Urine RBC (Auto) 0-2 (0-2) /hpf U Hyaline Cast (Auto) 3-5 H (0-2) /lpf U Epithel Cells (Auto) 0-2 (0-2) /hpf Urine Bacteria (Auto) None Seen (None Seen) Salicylates < 3.0 L (3.0-30) mg/dl Urine Opiates Screen Neg (Neg) Ur Methadone, Qual Neg (Neg) Urine Fentanyl Screen Neg (Neg) Acetaminophen < 3 L (10-30) ug/ml Urine Barbiturates Neg (Neg) Ur Phencyclidine (PCP) Neg (Neg) U Amphetamin/Meth Scrn Neg (Neg) MDMA (Ecstasy) Screen Pos H (Neg) U Benzodiazepines Scrn Neg (Neg) Ur Cocaine Metabolite Neg (Neg) U Marijuana (THC) Screen Pos H (Neg) Ethyl Alcohol mg/dL < 10.0 (<10.0) mg/dl SARS-CoV-2, RNA, NAAT NEGATIVE (NEGATIVE) Discharge Plan Visit Data Chief Complaint: Mental Health Evaluation ED Provider: Rosemarie Colby Discharge Problem: Depression Patient Disposition: Admitted As Inpatient Discharge Instructions Interventions: ED Discharge Assessment Last Done: 07/10/24 18:16
[2024-07-10 15:33] LABS: Amphetamines+Metham, Urine Neg (Neg); Barbiturates, Urine Neg (Neg); Benzodiazepine, Urine Neg (Neg); Cocaine, Urine Neg (Neg); Fentanyl, Urine Neg (Neg); MDMA (Ecstacy), Urine Pos (Neg); Marijuana, Urine Pos (Neg); Methadone, Urine Neg (Neg); Opiate, Urine Neg (Neg); Phencyclidine, Urine Neg (Neg)
[2024-07-10] MEDS ORDERED: ALUMINUM/MAGNESIUM SUSP 30 ML UDC PO PRN (19:18)
[2024-07-10] MEDS ORDERED: NICOTINE POLACRILEX 2 MG GUM MT PRN (19:18)
[2024-07-10] MEDS ORDERED: hydrOXYzine HCl 25 MG TAB PO PRN (19:18)
[2024-07-10] MEDS ORDERED: ACETAMINOPHEN 325 MG TAB PO PRN (19:18)
[2024-07-10] MEDS ORDERED: MAGNESIUM HYDROXIDE SUSP 30 ML UDC PO PRN (19:18)
[2024-07-10] MEDS ORDERED: BISMUTH SUBSALICYLATE 262 MG CHEW PO PRN (19:18)
[2024-07-10] MEDS ORDERED: SODIUM CHLORIDE 0.65% NA SOLN 45 ML (OCEAN) PRN (19:18)
--- OUTSIDE RECORDS SUMMARY | 2024-07-11 07:06 | External Medical Summary | Summary of Care ---
Author Name Unknown Organization [facility] Address [address] [place] [address] Phone [phone] Care Team Providers Care Legal Summer Intern Name Role Phone Keri Douglas MD Primary Care Prov ider Encounter Details Date Type Department Care Team (Late st Contact Info) Description 02/22/2024 Orders Only Outcomes Research Department [address] [place] [address] Brinda Dunbar CHRA [employer] Other*[id number] Allergies No known active allergiesdocumented as of this encounter (statuses as of 02/22/2024) Medications Medication Sig Dispensed Refills Start Date End Date Status Venlafaxine HCl ER 150 MG Oral Capsule Extended Release 24 Hour (Effexor XR)Indications:Recur rent major depressive disorder, in full remission (HCC) Take 1 Capsule by mouth daily. 07/11/2021 Active traMADol HCl 50 MG Oral Tablet (Ultram)Indications: Chest wall pain,Closed fracture of one rib of left side, initial encounter Take by mouth 1 Tablet daily as needed for Pain, Severe (for rib fracture pain). 15 Tablet 08/30/2021 Active documented as of this encounter (statuses as of 02/22/2024) Active Problems Problem Noted Date Diagnosed Date Obesity, Class I, BMI 30.0-34.9 (see actual BMI) 07/11/2021 Severe episode of recurrent major depressive disorder, without psychotic features 12/05/2020 Suicidal ideation 12/05/2020 documented as of this encounter (statuses as of 02/22/2024) Resolved Problems Problem Noted Date Diagnosed Date Resolved Date Hypoglycemia 02/26/2016 12/05/2020 Malaise and fatigue 02/26/2016 12/06/19 21 General medical exam 04/20/2014 021 Screening for diabetes mellitus 04/20/2014 12/05/2020 Screening for cardiovascular condition 04/20/2014 12/05/2020 Increased thirst 04/20/2014 12/05/2020 Routine child health exam 03/02/2002 documented as of this encounter (statuses as of 02/22/2024) Immunizations Name Administration Dates Next Due COVID-19 mRNA, LNP-s, No Pre serve, 2-Dose Series (EarlyDoc) 08/06/2021 COVID-19, LNP-s, No Preserve , Rakesh-sucrose, Ages 12+ (Pfizer) 08/27/2021 TDAP (age 10 and older)(Boostrix) 01/16/2012 documented as of this encounter Social History Tobacco Use Types Packs/Day Years Used Date Smoking Tobacco: Every Day Cigarettes 1 15 Smokeless Tobacco: Current Snuff Alcohol Use Standard Drinks/Week Comments Yes 0 (1 standard drink = 0.6 oz pur e alcohol) social AUDIT-C Answer Date Recorded Q1: How often do you have a drink containing alc ohol? Monthly or less 12/05/2020 Q2: How many drinks containi ng alcohol do you have on a typical day when you are drinking? Not asked 12/05/2020 Q3: How often do you have si x or more drinks on one occasion? Not asked 12/05/2020 PHQ-2 Answer Date Recorded PHQ Adult Total Score 22 12/05/2020 Hunger Vital Sign Answer Date Recorded Within the past 12 months, y ou worried that your food would run out before you got the money to buy more. Never true 12/06/19 21 Within the past 12 months, t he food you bought just didn't last and you didn't have money to get more. Never true 12/05/2020 Utilities Answer Date Recorded Do you have trouble paying y our heating, water, or electric bill? (Adult - for ages 18 years and over) Not on file 01/19/2024 Is your family able to pay t he heat, water, or electric bill? (Household - for ages 0-17 years) Not on file 01/19/2024 Does your family have access to good internet? (Household - for ages 0-17 years) Not on file 01/19/2024 Social Connections Answer Date Recorded How often do you feel lonely or isolated from those around you? (Adult - for ages 18 years and over) Not on file 01/19/2024 Sex and Gender Information Value Date Recorded Sex Assigned at Not on file Gender Identity Not on file Sexual Orientation Not on file Job Start Date Occupation Industry Not on file Not on file Not on file documented as of this encounter Plan of Treatment Scheduled Orders Name Type Priority Associated Diagnoses Orde r Schedule MYCODE INITIAL ADULT Lab Routine [employer] Other*[id number] Expected: 02/22/2024 (Approximate), Expires: 03/13/2025 Health Maintenance Due Date Last Done Comments Pneumococcal Vaccine: Pediatrics (0 to 5 Years) and At-Risk Patients (6 to 64 Years) (1 of 2 - PCV) 1992 Hepatitis C Screening 2004 Hepatitis B Vaccine (1 of 3 - 19+ 3-dose series) 2005 Depression Monitoring 12/05/2021 12/05/2020 DTaP,Tdap,and Td Vaccines (2 - Td or Tdap) 01/15/2022 01/16/2012 COVID-19 Vaccine (3 - 2022- season) 2023 08/27/2021, 08/06/2021 Influenza Vaccine (FLU shot) (#1) 2024 Diabetes Screening 07/18/2024 07/18/2021, 1 09/18/2020, 07/24/2015, Additional history exists HPV (Gardasil) Vaccine Aged Out No lo nger eligible based on patient's age to complete this topic MENINGOCOCCAL (MENACTRA/MENVEO) Aged Out No longer eligible based on patient's age to complete this topic documented as of this encounter Medical Devices Not on filedocumented as of this encounter Visit Diagnoses Diagnosis [employer] Other*[id number] documented in this encounter Care Teams Legal Summer Intern Relationship Specialty Start Date End Date Keri Douglas MD [address] [place] [address] [place] [id number] PCP - General Family Medicine 07/04/21 documented as of this encounter
[2024-07-11] MEDS: NICOTINE 21 MG/24 HR TDSY TD SCH (08:45)
[2024-07-11] MEDS: Patient's HEIGHT &/or WEIGHT Needed SCH (08:53)
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
[2024-07-11] MEDS ORDERED: GABAPENTIN 100 MG CAP PO PRN (11:54)
[2024-07-11] MEDS: buPROPion HCl 100 MG TABLET PO SCH (12:08)
[2024-07-11] MEDS: hydrOXYzine HCl 25 MG TAB PO PRN (21:06)
--- NOTE | 2024-07-12 09:00 | Psychiatric Progress Note ---
Date of Service July 12, 2024 Impression / Recommendations Impression CHIVO CESPEDES is a 38-year-old man who currently lives in [place] with his and sons, has a history of depression, anxiety, and was admitted on 07/10/24 19:13 on a 201 voluntary commitment for SI. Diagnostically consistent with unspecified depression with differential including major depressive disorder vs atypical depression vs adjustment disorder with depressed mood. A: Mood lability related to PFA and now with inability to speak with his sons due to this. However, denies SI, utilizing coping skills well and future- oriented and while he acknowledges change and ending his relationship will be d ifficult he is ready to start the next phase of his life and is hopeful about this. He's hopeful to discharge tomorrow after a support meeting if he has a place he can stay until his PFA hearing and if he continues to feel safe and able to use his coping skills. Overall, I spent a total of 30 minutes on this case including meeting with the patient, reviewing the chart, nursing report, multidisciplinary team meeting, orders, and documentation. (1) Depression: Plan 07/12/2024: Continue current medications and tx plan. Needs support meeting. 07/11/2024: The patient was admitted to the [facility] ([facility] inpatient mental health unit) on q15 min checks (behavioral with suicide precautions) for safety. The patient will participate in group, recreational, and milieu therapies and will be offered additional individual and family sessions as clinically appropriate. -Continue Wellbutrin 100mg BID -Work on coping skills -Needs individual therapist Inventory Assets Strengths: supportive relationships, willing to get treatment Needs: safety and stabilization, medication adjustment, additional coping skills, increased outpatient services Suicide Risk Level Suicide Risk Level: Moderate (q15 min suicide checks) (statement of SI prior to admission, now denying SI and feels safe in the hospital, feels able to ask for support) Risk Factors Assessment Male: Yes : Yes Do You Have Access To A Gun?: No (police have it and he plans to sell it once he eventually gets it back ) Health Problems: No Mental Health Diagnoses: Yes Substance Use Disorders: No Previous Attempt: No Family History of Suicide: No Previous Psychiatric Hospitalization: Yes Hopelessness: No Protective Factors Assessment Responsible for Young Children: Yes 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 Chief Complaint "I don't want to do that". Review of Systems Sleep Information Total Hours of Sleep: 6.5 Sleep Comments: No HS medications Meal Information Percent Meal Consumed - Breakfast: 100 Percent Meal Consumed - Lunch: 90 Percent Meal Consumed - Dinner: 25 Subjective Subjective Patient was seen & assessed and interval progress reviewed with treatment team nursing and social work. Yesterday afternoon he was served with a PFA from his . Rated his mood as "hopeless" last evening. Spent time interacting with peers, some improvement in mood with this. Slept well overnight. Processed recent events, he feels sad about PFA because it means he can't see or speak with his sons and worries about this will impact them. Notes that this came as shock to him as "I didn't even know if she could do that" as he notes he was not violent or aggressive. States it seems it was due to her report that he said "blown my brains out". He disputes this noting that he may have started to say "blow my" but stopped himself. He continues to adamantly deny SI noting "I don't want to do that" and reflecting on how he would never do that to his children and reflects "to do something like that is selfish and would mess my kids up". He reflects saying that he wouldn't want to be alive but notes this was "because I was angry and my temper got the best of me". He's hopeful he can live with a friend until the PFA hearing next week. Spoke with his boss and felt well supported by him. Notes his mother is also strong support for him. Very motivated to start outpatient therapy. Physical Exam Psychiatric Orientation: alert and oriented x 3 Apperance: appropriately dressed and appropriately groomed Eye Contact: good eye contact Motor Behavior: no abnormal motor movements Speech: normal rate/rhythm/volume of speech Affect: + anxious affect Mood: + anxious mood Thought Process: goal directed thought process Thought Content: reality based without delusions Suicidal Thoughts: denies suicidal thoughts, denies suicidal plan and denies suicidal intent Homicidal Thoughts: denies homicidal thoughts Hallucinations: no auditory hallucinations and no visual hallucinations Cognition: recent memory grossly intact, remote memory grossly intact, attention grossly intact and language grossly intact Estimated Intelligence: consistent with education level Insight: + fair insight Judgment: + limited judgement Vital Signs (Past 24 Hours) Last Vital Signs Temp 36.7 C 07/12/24 06:36 Pulse 79 07/12/24 06:36 Resp 16 07/12/24 06:36 BP 131/69 07/12/24 06:36 Pulse Ox 97 07/11/24 06:45 O2 Del Method Room Air 07/11/24 06:45 Results & Data ([facility]) Current Inpatient Medications Current Inpatient Medications: Current Inpatient Medications Acetaminophen (Acetaminophen 325 Mg Tab) 650 mg PO Q4H PRN PRN Reason: Headache or Minor Fever Stop: 08/09/24 19:17 Al Hydrox/Mg Hydrox/Simethicone (Aluminum/Magnesium Susp 30 Ml Udc) 30 ml PO Q4H PRN PRN Reason: GI Upset Stop: 08/09/24 19:17 Bismuth Subsalicylate (Bismuth Subsalicylate 262 Mg Chew) 2 tab PO Q30M PRN PRN Reason: Loose Stool/Diarrhea Stop: 08/09/24 19:17 Bupropion HCl (Bupropion Hcl 100 Mg Tablet) 100 mg PO BID [facility] Stop: 08/10/24 11:44 Last Admin: 07/11/24 21:06 Dose: 100 mg Gabapentin (Gabapentin 100 Mg Cap) 100 mg PO TID PRN PRN Reason: nerve pain Stop: 08/10/24 13:59 Hydroxyzine HCl (Hydroxyzine Hcl 25 Mg Tab) 50 mg PO HSZ PRN PRN Reason: Insomnia Stop: 08/09/24 19:17 Last Admin: 07/11/24 21:06 Dose: 50 mg Hydroxyzine HCl (Hydroxyzine Hcl 25 Mg Tab) 25 mg PO Q4H PRN PRN Reason: Anxiety Stop: 08/09/24 19:17 Magnesium Hydroxide (Magnesium Hydroxide Susp 30 Ml Udc) 30 ml PO DAILY PRN PRN Reason: Constipation Stop: 08/09/24 19:17 Miscellaneous (Remove Nicoderm Patch) 1 each N/A DAILY@0859 [facility] Stop: 08/10/24 08:58 Last Admin: 07/11/24 08:55 Dose: Not Given Nicotine (Nicotine 21 Mg/24 Hr Tdsy) 1 patch TD QAM [facility] Stop: 08/10/24 08:59 Last Admin: 07/11/24 08:45 Dose: 1 patch Nicotine Polacrilex (Nicotine Polacrilex 2 Mg Gum) 1 piece MT PRN PRN PRN Reason: Nicotine Withdrawal Symptoms Stop: 08/09/24 19:17 Sodium Chloride (Sodium Chloride 0.65% Na Soln 45 Ml ([place])) 1 - 2 sprays NA PRN PRN PRN Reason: Nasal Dryness/Congestion Stop: 08/09/24 19:17 Post Discharge Appointments Primary Care Physician Name Of Family Doctor/PCP: Dr. Vasques
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
[2024-07-14 22:42] LABS: MDA negative; MDEA negative; MDMA (Ecstasy) Urine, Confirm negative; Marijuana Quant, GCMS Urine 3959 ng/mL (<5)
== END 2024-07-13 12:37 | disposition home or self-care (01) | DRG 881 ==
LOC: ED 13:45 → 3S 19:13